=== PATIENT | female | born 1995 | race Caucasian/White ===

== ENCOUNTER 2017-03-05 00:03 | Emergency (ER) | payer OTHER ==
[2017-03-05 00:28] LABS: BASOPHIL 0.2 % (0-2); BILIRUBIN NEGATIVE (NEGATIVE); BLOOD 2+ Ery/uL (NEGATIVE); CLARITY CLEAR (CLEAR); COLOR YELLOW (YELLOW); EOSINOPHIL 0.4 % (0-5); GLUCOSE (U) NORMAL (NORMAL); HCT 42.5 % (37.0-47.0); HGB 14.2 g/dl (12.5-16.0); KETONE (U) NEGATIVE (NEGATIVE); LEUKOCYTES NEGATIVE Leu/uL (NEGATIVE); LYMPHOCYTE 13.9 % (15-48); MCH 28.8 pg (25.0-31.0); MCHC 33.4 g/dL (32.0-36.0); MCV 86.2 fL (78.0-100.0); MONOCYTE 4.6 % (0-12); MPV 8.5 fL (6.0-9.5); NEUTROPHIL 80.9 % (41-80); NITRITE NEGATIVE (NEGATIVE); PLT 459 K/uL (150-400); PROTEIN NEGATIVE (NEGATIVE); RBC 4.93 M/uL (4.20-5.40); RDW 14.3 % (11.5-14.0); SPECIFIC GRAVITY >=1.030 (1.001-1.030); UROBILINOGEN 0.2 mg/dL (0.2-1.0); WBC 21.6 K/uL (4.0-10.5); pH 5.5 (5.0-9.0)
[2017-03-05 00:42] LABS: ALBUMIN 4.8 g/dL (3.5-5.0); BILIRUBIN - TOTAL 0.4 mg/dL (0.1-1.0); CREATININE 0.7 mg/dL (0.5-1.0); GLOBULIN (CALCULATION) 3.2 g/dL (2.2-4.2); POTASSIUM 4.2 mmol/L (3.5-5.1)
== END 2017-03-05 05:00 | disposition home or self-care (01) ==
LOC: FER 00:03
PROVIDERS: Emergency Medicine Emergency Medical Services
DX: K52.9 Noninfective gastroenteritis and colitis, unspecified (principal); E86.9 Volume depletion, unspecified
CPT/HCPCS: 36415; 74022; 80053; 81001; 82150; 83690; 85025; J2270; J2405